=== PATIENT | female | born 1930 | race Caucasian/White ===

== ENCOUNTER 2019-04-19 11:25 | Inpatient (IN) | payer OTHER, BC ==
[~2019-04-19] VITALS: Ht 167.6 cm; Wt 46.9 kg
[2019-04-19 11:26] VITALS: BP 103/79
[2019-04-19] MEDS ORDERED: VYZULTA5 ML OPHTHALMIC (11:36)
[2019-04-19] MEDS ORDERED: OMEPRAZOLE20 M2 PO (11:36)
[2019-04-19] MEDS ORDERED: SEROQUEL 100 M100 M1 PO (11:37)
[2019-04-19 13:04] LABS: ABSOLUTE NEUTROPHILS 4.1 thou/uL (1.4-8.2); BASOPHILS 0.5 % (0.0-2.0); EOSINOPHILS 0.9 % (0.0-3.0); HEMOGLOBIN 13.3 gm/dL (12.0-15.0); LYMPHOCYTES 22.6 % (24.0-44.0); MCH 33.3 pg (26.0-34.0); MONOCYTES 7.9 % (1.0-8.0); PLATELET COUNT 177 thou/uL (150-400); POLYS 68.1 % (36.0-66.0); RBC 3.98 mil/uL (4.20-5.00); RDW 12.6 % (10.5-14.5); WBC 5.9 thou/uL (4.0-11.0)
[2019-04-19 13:13] LABS: URINE BILIRUBIN NEGATIVE (Negative); URINE BLOOD 3+ (Negative); URINE COLOR YELLOW; URINE GLUCOSE-RANDOM* NEGATIVE (Negative); URINE KETONES 1+ (Negative); URINE LEUKOCYTES-REFLEX NEGATIVE (Negative); URINE NITRITE-REFLEX NEGATIVE (Negative); URINE PROTEIN (DIPSTICK) 2+ (Negative)
[2019-04-19 13:15] LABS: URINE CLARITY SL HAZY
[2019-04-19 13:22] LABS: AMP/METHAMP Negative (Negative); BARBITURATES Negative (Negative); BENZODIAZEPINES POSITIVE (Negative); COCAINE Negative (Negative); METHADONE Negative (Negative); OPIATES Negative (Negative); PCP Negative (Negative)
[2019-04-19 13:26] LABS: SQUAMOUS 0-3 Few /LPF (0-3); URINE RBC >20 Many /HPF (0-2); URINE WBC-REFLEX 0-5 Rare /HPF (0-5)
[2019-04-19 13:27] LABS: BACTERIA-REFLEX 1-9 Few /HPF (None Seen); CASTS None Seen /LPF (None Seen); CRYSTALS None Seen /LPF (None Seen)
[2019-04-19 13:27] LABS: ANION GAP 11 mmol/L (7-16); BUN 18 mg/dL (7-18); CALCIUM 9.1 mg/dL (8.5-10.1); CHLORIDE 107 mmol/L (98-107); CO2 24 mmol/L (21-32); CREATININE 0.8 mg/dL (0.6-1.0); GLUCOSE 91 mg/dL (74-106); POTASSIUM 3.2 mmol/L (3.5-5.1); SODIUM 142 mmol/L (136-145)
[2019-04-19 13:33] LABS: SALICYLATE < 2.8 mg/dL (2.8-20.0); SGOT 24 U/L (15-37); SGPT 24 U/L (30-65); TOTAL BILIRUBIN 0.7 mg/dL (<0.1-1.0)
[2019-04-19 13:35] LABS: MAGNESIUM 1.7 mg/dL (1.8-2.4); TROPONIN-I <0.06 ng/mL (<0.06)
[2019-04-19 14:32] VITALS: BP 147/63
[2019-04-19 16:01] VITALS: BP 179/94
--- NOTE | 2019-04-19 17:22 | EKG ---
[address] [place] [address] ELECTROCARDIOGRAM REPORT Name: BASHIR KIRAN Room #: 518- ADM IN M.R.#: [id number] Admission: 04/19/19 Attend Phys: Eric Pierson DO Discharge: Date of : [birth year] Report #: [id number] THIS REPORT FOR: //name// [facility] ED Test Date: 2019-04-19 Test Time: 13:04:21 Pat Name: BASHIR IKRAN Department: Room: [facility] Gender: F Rn Diabetes Educator: LESLEY : 1930 Requested By: Curt Smith Order Number: [id number] MD: Jesus Wetzel Measurements Intervals [place] Rate: 97 P: 56 NM: 122 QRS: 48 QRSD: 89 T: 51 QT: 376 QTc: 478 Interpretive Statements Sinus tachycardia Ventricular premature complex No previous ECG available for comparison Electronically Signed On 04-19-2019 17:22:30 GRADUATE RN by Jesus Wetzel [email or web address] <ELECTRONICALLY SIGNED> By: Jesus Wetzel MD, [facility] 04/19/19 1722 1304 [id number] Jesus Wetzel MD, FACC /EPI
[2019-04-19 17:58] VITALS: BP 170/86
--- NOTE | 2019-04-19 19:12 | NUR ---
88 yo female admitted from ER with hx of being combative with her walker at snf and yelling. Confused. Keeps asking "Why am I here?" "How did I get here?" Orientated to self only. When asked about SI/HI she states that she doesn't know what I am talking about. Denies pain. Ambulates with assistance with walker to dining table without difficulty. Ate dinner independently with peers. Compliant with med. Breath sounds clear t/o, bilaterally equal, slightly diminished in lower lobes. O2 sats 99% Color pink with brisk capillary refill and palpable peripheral pulses. BP 170s/90s. Dr. Gillis here assessing pt, aware. Reg HR auscultated. Active bowel sounds over soft, flat abdomen. 3 cm circular mole to R thigh. R mastectomy scar. Bruising per R wrist consistent with information from snf.
[2019-04-19 19:56] VITALS: BP 148/76
--- NOTE | 2019-04-19 22:13 | NUR ---
Care assumed of patient at 1915: Patient answers to her name when called. Patient laying in bed at start of shift. Patient agitated and irritable during nursing assessment. Patient having difficulty understanding questions asked. Nurse asked patient if she would like her light turned off. Patient kept repeating "what?" Simple questions as such were difficult to be processed and answered appropriately for this nurse. Patient confused and forgetful. When asked what her name is, she looks at nurse with blank suspicious look. Patient did take HS medication without difficulty. Patient reported that she "just wants to sleep" and "for you to leave my room" when speaking to nurse. Patient denies pain or discomfort with a blunt "NO!". Patient tomas called and was notified of admission, visitation hours and security code. She is listed on [facility] paperwork in chart. Patient yelled out for help and stated she needed to use the bathroom. Nurse assisted her to the bathroom with standby assist. Continent of bladder. Patient has shown no physical aggression or combative behaviors this evening. Patient continues to rest quietly in bed.
--- NOTE | 2019-04-20 08:30 | H ---
[facility] [address] [place] [address] HISTORY AND PHYSICAL Name: BASHIR KIRAN Room #: 518B-B ADM IN M.R.#: [id number] Admission: 04/19/19 Attend Phys: Eric Pierson DO Discharge: Date of : [birth year] Report #: [id number] THIS REPORT FOR: //name// CC: Eric Lauren DATE OF SERVICE: 04/19/2019 INPATIENT PSYCHIATRIC EVALUATION ATTENDING PHYSICIAN: Eric Pierson D.O. PHOTOGRAPH ENLARGER: Malick Dawn MD REASON FOR EVALUATION: Combative, yelling, unable to redirect at long-term, patient is poor historian. HISTORY OF PRESENT ILLNESS: This is an 88-year-old beige, frail-appearing female. Particularly we noted the patient having falls as recent as 04/10/2019, altered mentation resistant to cares. The patient was screened at the Emergency Room to have somewhat better narrative than the last provider note dated 04/04/2019 by [facility]. She was noncooperative with review of systems and exam. Repetitive speech. MEDICAL HISTORY: Includes metabolic encephalopathy, bipolar 2 disorder, GERD, osteoarthritis, major depression, dementia with behavior, glaucoma, hyperlipidemia, osteoarthritis, acute cystitis without hematuria, severe PCM, paranoid personality disorder. EMERGENCY ROOM DOCUMENTATION: She has been prescribed Xanax by long-term. Apparently, the patient was throwing her walker around dangerously in the long-term, not eating breakfast. There is bruising on her arms. The patient made statements in the ER "everyone here looks so familiar, you are to me, waiting for me to , I am going to , so what's the difference." When asked about history, said "I am not talking to you, shut up, I do not want to hear it." She was spitting, hitting the staff, throwing walker at facility, verbally abusive per EMS. She takes latanoprost for glaucoma in her eye, omeprazole, Seroquel 100 mg with dinner. Both the ER and myself were unable to do review of systems. Weight 45.586 kilos, it is about 100 pounds. She had little scratches over her legs. No exudates. No ulcers. Extremities are warm and dry. Good skin turgor. IMAGING STUDIES: EKG showed a sinus rate 97, normal axis, no STEMI. No other EKGs for comparison. Chest x-ray was done, which showed mild chronic appearing interstitial lung disease. [address] [address] HISTORY AND PHYSICAL Name: BASHIR KIRAN Room #: 518B-B ADM IN M.R.#: [id number] Admission: 04/19/19 Attend Phys: Eric Pierson, Discharge: Date of : [birth year] Report #: [id number] LABORATORY DATA: Sodium 142, potassium 3.2, chloride 107, bicarbonate 24, anion gap 11, BUN 18, creatinine 0.8, estimated GFR 68, glucose 91, calcium 9.1, magnesium 1.7, total bilirubin 0.7, AST 24, ALT 24, alkaline phosphatase 146. Troponin less than 0.06. Total protein 6.0, albumin 3.0. TSH 0.841. White blood cell count 5.9, H and H 13.3 and 39.0, platelet count 177. UDS positive for benzodiazepines. Urinalysis showing 1+ protein, 1+ ketones, 3+ blood, nitrites negative, leukocyte esterase negative, few bacteria seen. The patient was given potassium replacement in the ER, medically cleared. When I interviewed the patient, both in the ER and attempted interview on floor, she first looked familiar, then got irritable, belligerent, was noncooperative with questioning. The nurse spoke to, who I believe her son or daughter, I have not had time to call today, but will tomorrow. PHYSICAL EXAMINATION: GENERAL: This is a [age]hkym[age]cb[age]-age female, appearing frail. Attention limited. Concentration limited. Speech loud, normal rate. Thought process, largely nonlinear, tangential. Thought content, paranoid, guarded and difficult to dissect further, did not appear self-harming or assaultive. She could be responding to external stimuli, but I am not able to explore it at this time. Memory noted to be impaired. Insight impaired. Judgment impaired. Fund of knowledge well below average. FORMULATION: An 88-year-old female sent from long-term, she apparently was in jail stay. FAMILY HISTORY: Noted for diabetes mellitus, breast cancer in sister, diabetes mellitus in father. DIAGNOSES: Major neurocognitive disorder, likely due to Alzheimer's disease with behavioral disturbances, now decompensated. Physical diagnoses include glaucoma, osteoarthritis, history of cystitis. PLAN: Evaluate, stabilize, obtain collateral. With regard to her current medications, she should be in the hospital on Protonix 40 mg p.o. daily for GERD, Seroquel 100 mg at bedtime and 25 mg b.i.d. added on, latanoprost 1 drop each eye at night, the usual including Zofran, Tylenol, magnesium hydroxide. ESTIMATED LENGTH OF STAY: 10-14 days. Take collateral from family. I suspect we will need to add more medication once I talk to decision makers. She is having no code, currently signed in by her DPOA. Time spent on interview, review of records, coordination of care of this patient is at least 45 minutes. [facility] [address] [place] [address] HISTORY AND PHYSICAL Name: BASHIR KIRAN Room #: 518B-B ADM IN M.R.#: [id number] Admission: 04/19/19 Attend Phys: Eric Pierson DO Discharge: Date of : [birth year] Report #: [id number] STRENGTHS: She has supportive family and insurance. WEAKNESSES: Quite advanced age, neurodegenerative disorder and comorbidities. <ELECTRONICALLY SIGNED> By: Eric Pierson DO 04/20/19 0830 [id number] Eric Pierson DO /nt
[2019-04-20 09:45] VITALS: BP 145/85
--- NOTE | 2019-04-20 10:31 | NUR ---
0700 rECIEVED REPORT AND ASSUMED CARE. PATIENT RELAXED IN BED. ABLE TO AMBULATE WITH WALKER SUPPOR. TOOK BREAKFAST AND MEDICATIONS. CONFUSED.ALERT AND ORIENTED X 1 GETS AGITATTED WHEN SHE REALIZES WE DONT ALLOW HER TO GO "UPSTAIRS AND SEE HER FRIEND" 1000 WENT TO HER ROOM TO RELAX. DIDN'T PARTICIPATE ON THERAPY TODAY. WILL CONTINUE WITH THE PLAN OF CARE.
--- NOTE | 2019-04-20 18:01 | NUR ---
PT. HAS REFUSED ALL FOOD/BEVERAGE TODAY. SHE BECOMES AGITATED WHEN STAFF TRIES TO ASSIST HER. SHE WILL NOT FEED HERSELF EITHER.
[2019-04-20 20:24] VITALS: BP 159/99
--- NOTE | 2019-04-20 21:40 | NUR ---
Care assumed of patient at 1915: Patient alert and oriented to person only. Patient confused and forgetful. Patient pacing about the unit requesting to go upstairs at start of shift. Patient irritable and restless. Patient was able to be assisted to her room and she decided to lay in bed. Nurse approached patient to complete nursing assessment. Patient speaking in word salad, not answering questions appropriately. Patient having suspicious look to her. Patient speaking in a sarcastic manner, difficulty making eye contact. Patient provided HS medication whole. Patient took the cup angrily from nurse and resistently took prescribed Seroquel. Patient then began yelling at the nurse when prescribed eye drops were instilled. Patient stating "I don't know what is wrong with you people here", "You guys are the weirdest people I have met". Those are the clearest phrases patient was able to put together. Patient did deny pain or discomfort. Patient would yell "NO" to most questions asked. Patient declined HS snack but did drink approximately 90cc H2O with medication. Patient resting quietly in bed at this time.
[2019-04-21 05:56] LABS: CALCIUM 8.6 mg/dL (8.5-10.1); CREATININE 0.9 mg/dL (0.6-1.0); POTASSIUM 3.6 mmol/L (3.5-5.1)
--- NOTE | 2019-04-21 07:22 | NUR ---
Patient up this AM to have vital signs monitored. Staff attempted to assist patient to day room for breakfast. Patient banging walker into ma, hitting it on the floor. Attempting to hit staff with walker. Cursing, yelling. Repeatedly asking "why are you doing this to me?" Attempted to re-orient patient that she is at the hospital. Not helpful. Patient agitated and irritable. Dr. Pierson notified. Order obtained for Olanzapine IM 1x now. Patient grabbing at staff, hitting. Confused and angry.
[2019-04-21 07:35] VITALS: BP 136/82
--- NOTE | 2019-04-21 12:22 | NUR ---
Pt responds best to the name "Yumiko Booker" ADEOLA contacted pt's DPOA and nephew Chato "Chad" Abhinav (JEFFRY) to discuss hx of pt's mental health. He acknowledged he is DPOA but said pts niece Sienna Ruano would have more information. ADEOLA contacted DF and obtained a hx from her. Pt is without any children; pt's niece and nephew are the closest relatives to her. She explained much is unknown to her and pt's nephew because her hospitalization 20 years ago was kept a secret. She also notes pt was a severe alcoholic before that hospitalization, but is not currently. She said pt's psych doctor Dr. Mullins with [facility] would know the most because pt has been treated by Dr. Mullins since right after that hospitalzation. Around the time of this hospitalization pts . DF notes that much of pt's neediness ad the beginning of her altered mental status began 5 years ago when her last living sibling ; pt is the youngest of 11 children. However, her paranoia, aggressive behaviors, hallucinations, and delusions really increased over the summer. She now believes that her food is poisoned, and that she sees something bad happen to her niece on the news. DF notes that it is very important to make pt feel like she is in control at all times, because some of her paranoia occurs after she believes someone is trying to take control from her. DF also notes the best way to calm pt down is to talk to her about being an [employer]; pt's ray is very important to her and she is very interested in all things Janae and [employer]. Pt does not have recent history of drug and alcohol use. She worked for many years and did so at [employer] and for [employer]; she has not worked in over 20 years. DF says when pt had her latest incident, she was at [facility] for skilled rehab. However, they were in the process of moving her to memory care. She said conversations she has had with staff with [facility] of suggest they want to take pt back once her behaviors are stable. ADEOLA scheduled a family meeting for Tuesday 04/24 @ 3pm; pt's nephew JEFFRY will attend via phone as he lives in [place], [place]. ADEOLA sent an email to Chad at [email or web address]. SW team will continue to follow pt during her stay.
--- NOTE | 2019-04-21 12:47 | NUR ---
Received IM injection this a.m. she did become calm and cooperative after until about 1130, when she became agitated and aggressive, slamming walker into the ma and door of nurses station, she started to yell out at staff in nonsensical words, she was actually redirected and helped to the dining room where she sat and ate a small amount of her lunch although she did finish her ensure, she remains confused, spoke with Dr. Pierson, received orders for IM injection as a prn due to her refusing meds and increased agitation, continue to monitor for behaviors and safety.
--- NOTE | 2019-04-21 19:50 | NUR ---
Sleeping in bed with SR up at approximately 1830. No s/o distress. Mouth moving as if she is praying or talking in her sleep.
[2019-04-21 20:02] VITALS: BP 180/94
[2019-04-21 21:46] VITALS: BP 180/94
--- NOTE | 2019-04-22 03:07 | NUR ---
PT IN BED AT CHANGE OF SHIFT. TOOK HS MED W/O PROBLEM. UP TO BR WITH WALKER. REFUSING ASSIST FROM STAFF. LOUD, BELLIGERENT, AND ARGUMENTATIVE. ATTEMPTING TO USE WALKER TO FEND OFF ASSIST. DID NOT QUITE MAKE IT TO BR, AND HAD BM NEAR STOOL. PT RETURNED TO BED AND BR CLEANED AND SANITIZED. PT UNTIMATELY WENT TO SLEEP AND CONTINUES TO REST QUIETLY TO THIS POINT.
[2019-04-22 07:34] VITALS: BP 123/63
[2019-04-22 09:50] VITALS: BP 123/63
--- NOTE | 2019-04-22 10:00 | NUR ---
0700 Report received from overnight, patient ate breakfast took medication without incidence. Patient quiet cooperative no depression, anxiety at present time. patient participated in groups.
[2019-04-22 19:38] VITALS: BP 121/69
--- NOTE | 2019-04-22 23:26 | NUR ---
Care assumed of patient at 1915: Patient alert and oriented to person. Patient seated in day room at start of shift. Patient confused and forgetful. Patient compliant with nursing assessment. Patient easily agitated. Asking the same questions over and over. Disorganized thoughts, flight of ideas. Patient labile to where she was smiling and speaking clear thoughts then she was agitated, gritting her teeth, speaking word salad, trying to hit staff. Patient denies pain or discomfort. Patient worried about being killed because someone else was murdered today. Patient required frequent re-direction and orientation that she is at the hospital and is safe. Patient did report that she hadn't ate all day and was hungry and wanted a sandwich. Patient provided a box lunch and ate approximately 50%. She then ate 100% HS snack. Patient took HS medication whole without difficulty. Patient denies SI/HI/AH/VH. Patient reported that she was ready to go to bed. Patient assisted to her room with staff x1. Patient became agitated a couple times during ambulating to her room, going to the bathroom and laying in bed. Patient slammed her walker on the ground and attempted to swing her arm and hit nurse. Patient was easily re-directed. Patient continent of bladder. Patient fixated on making sure all the doors and windows were locked so the murderer could not get to her in her sleep. After several minutes, patient was able to fall asleep and has been resting quietly.
[2019-04-23 07:48] VITALS: BP 130/63
[2019-04-23 09:22] VITALS: BP 130/63
--- NOTE | 2019-04-23 16:28 | NUR ---
Assumed care this morning 0700. Patient was able too take breakfast and medications. later in the morning she started getting more agitated and paroid about someone who wants to hurt others and take them away.Flights of thoughts that are incoherent. Scared of getting out of her room and trying to close the door every time she goes back there. The hospitalist came to see her and she became so agitated and started saying that "you are not taking care of the person taking others." Resting in her room most of the day. Walks to the activity room just for meals. Will continue to monitor.
--- NOTE | 2019-04-24 04:16 | NUR ---
1909-Report received from day shift nurse and care assumed. Quynh was in her room awake laying on her bed at shift change. She initially said "get out" several times when talking with her in her room, but then she didn't and talked with unrecognizable words in word salad form mostly, some understood was "did you hear" "about him" "dying". She had a tense, paranoid affect, and then soon her HS meds. were obtained and she said "no, no". This nurse acknowledged her delusions with understanding and concern.She refused a snack at that time. At about midnite she walked with walker out of her room and to the nurses station shouting "let me in there, this is my house, you are fired, he is fired" and was then non-redirectable banging her walker into the wall too, yelling "this is my house, you are fired". She escalated yelling mostly non-recognizable words also, delusional/paranoia in content. She was given at 0030 Olanzapine 7.5 mg. IM. It was effective, she talked in a quieter voice and wanted to talk to this nurse asking about Stephanie repeatedly and other non-recognizabe sentences in content of "when did she ", where is Stephanie. She said I'm hungry a few times and snack provided to her. She could not relocate her room when she wanted to go back to it. She finally did go back to sleep soundly.
[2019-04-24 09:38] VITALS: BP 131/68
[2019-04-24 09:56] VITALS: BP 131/68
--- NOTE | 2019-04-24 15:51 | NUR ---
AFTER REPORT NURSE ASSUMED CARE 0700. PATIENT CALM AND COOPERATIVE. AGREED TO SIT AT THE ACTIVITY ROOM FOR BREAKFAST AND HAD GGOD APPETITE. TOOK MEDICATIONS WHOLE. PT GOES BACK TO BED THEREAFTER BECAUSE THATS WHERE SHE FEELS SAFE. SHE KEEPS ASKING FOR HER SUITCASE THAT HAS HER CLOTHS. REMINDED HER CLOTHS ARE LOCKED SAFELY AND NO ONE WILL TOUCH THEM.WORD SALAD OVER AND OVER. REASSURING HER MAKES HER FEEL SAFE AROUND. WILL CONTINUE WITH THE PLAN OF CARE.
[2019-04-24 20:19] VITALS: BP 136/68
[2019-04-24 20:20] VITALS: BP 147/85
--- NOTE | 2019-04-25 01:14 | NUR ---
ASSESSMENT: PT REMAIN ALERT AND ORIENT TO SELF. PT IS VERY SLEEPY, YET EASY TO AROUSE. DENIES PAIN. TOOK HS MEDS BUT REFUSED LATANOPROST EYE GTTS. AFTER TAKING MEDS AND USING THE BR, PT WENT STRAIGHT BACK TO SLEEP WITHOUT FURTHER ADO. PT DENIED BEING HUNGRY IN SPITE OF NOT EATING DINNER. VSS, AFEBRILE, WILL CONTINUE TO MONITOR. BED ALARM SET. EVERY 12 MINS ROUNDS MADE ON PT. WILL CONTINUE TO MONITOR.
[2019-04-25 07:56] VITALS: BP 126/66
--- NOTE | 2019-04-25 13:26 | NUR ---
ADEOLA received a call from pt's nephew and CHRIS La. He had a couple questions from yesterday's family meeting; he asked if pt's diagnosis was BiPolar II. ADEOLA explained that was conversation in the ER room during her ER consultation, but that is not in her H&P. He then mentioned that a nurse told him she would fax him documentation with what the plan will be for pt's treatment. ADEOLA advised him that specific nurse is not on duty, but SW will follow-up on this information. He also stated he would like the psych doctor to have access to pt's doc records from Dr. Mullins. ADEOLA faxed a release of information for Chad to sign to [phone]. SW team will continue to follow pt during her stay
--- NOTE | 2019-04-25 13:36 | NUR ---
ADEOLA faxed updates to [facility] [place] to [phone]. ADEOLA team will continue to follow pt during her stay.
--- NOTE | 2019-04-25 15:42 | NUR ---
ASSUMED CARE OF PT AT APPROX 0700. PT IS ALERT. DENIES PAIN AND SOA. EVEN NON LABORED BREATHING. ASSESSMENT CHARTED. PT WAS IN ROOM MOST OF DAY EVEN AFTER LOTS OF ENCOURAGEMENT BY THIS RN AND OTHER STAFF. NAD NOTED WILL CONT. TO MONITOR.
[2019-04-25 19:41] VITALS: BP 133/73
--- NOTE | 2019-04-26 01:00 | NUR ---
ASSUMED CARE @ 19:15 ON 04/25/19, IN HER ROOM AMBULATING FROM ROOM TO HALLWAY AND BACK. WHEN EVENING STAFF INTRODUCED SELF, PATIENT WAS CONFUSED, REFUSED TO SAY NAME, COULD NOT EXPRESS PLACE OR TIME. BECAME COMBATITIVE AND SLAPPED STAFF TRYING TO GIVE CARE. PATIENT REFUSED ASSESSMENT. PATIENT DID TAKE HER PO MEDS CRUSHED IN APPLESAUCE GIVEN PO OLANZAPINE 5 MG PRN @ 2100. REFUSED ENSURE AND WATER. EYE DROPS PROVIDED @ 2200. LAID DOWN AND SLEPT AT AN APPROPRIATE TIME, AWAKENING A FEW TIMES IN THE NIGHT FOR TOILETING. RESISTED CARE AT THOSE TIMES. WILL CONTINUE TO MONITOR Q 12 MINUTES FOR PATIENT SAFETY. BED IN LOW POSITION, BED ALARM SET.
[2019-04-26 09:13] VITALS: BP 129/67
[2019-04-26 14:02] VITALS: BP 129/67
--- NOTE | 2019-04-26 14:09 | NUR ---
THE PATIENT IS CONFUSED BUT ALERT. SHE WAS STANDING IN THE DOOR OF HER ROOM HOLLERING OUT. SHE EXPRESSED THAT SHE WAS NEXT TO BE KILLED. THE PATIENT WAS REDIRECTED BUT POINTED TO THE [employer] AND THE [facility] STUDENT SAYING THAT SHE DOES NOT TRUST THEM. THE PATIENT WAS REDIRECTED AND THEN AMBULATED WITH HER WALKER TO HER ROOM. SHE HAS BEEN NONCOMPLIANT WITH MEDICATIONS. SHE SPIT OUT HER SEROQ. THIS MORNING. THE NIGHT NURSE ALSO REPORTED THAT SHE SPIT OUT HER MEDICATIONS LAST NIGHT. THE PATIENT CONTINUES TO ASK FOR HER EYE GLASSES BUT SHE HAS NONE. THERE ARE NO GLASSES LISTED ON HER INVENTORY SHEET. SHE CONTINUES TO HOLLER OUT IN THE HALLWAY BY HER ROOM AND SLAMMING HER DOOR TELLING STAFF TO GET OUT AND GO AWAY. THE PATIENT IS CHECKED ON EVERY 12 MIN. AND PRN. SHE IS VERY AGITATED AND RESTLESS. SHE HAS BRP AND MAY NEED STAND BY ASSIST WHILE DURING ADL'S. CONTINUE TO MONITOR.
[2019-04-26 19:30] VITALS: BP 136/61
[2019-04-26 23:23] VITALS: BP 136/61
--- NOTE | 2019-04-27 03:14 | NUR ---
PATIENT HAS BEEN SLEEPING MOST OF NIGHT. SHE BECAME VERY AGITATED AT BEGINNING OF THE SHIFT BECAUSE SHE WAS NOT ALLOWED TO CLOSE HER DOOR ALL THE WAY. FINALLY, WE DID AND JUST OPENED THE INSERT DOOR. PATIENT WAS IRRITABLE WITH MUSIC SOUND LIGHT TECHNICIAN AND THIS NURSE WHEN WE HAD TO CHECK VITALS AND GIVE HS MEDS. SHE TOOK HER MEDS WITHOUT INCIDENT AND THEN ORDERED US TO GET OUT OF HER ROOM. SHE DOES HAVE DELUSION THAT THIS PLACE IS LIKE A WOMEN'S RETREAT AND SHE IS NOT VERY HAPPY THIS YEAR WITH THIS ONE. SHE DENIES PAIN. OLANZAPINE 5MG PRN GIVEN WITH HS MEDS. BED ALARM ON. WALKER BESIDE BED. ROUTINE ROUNDS BEING DONE. CONTINUE TO MONITOR.
[2019-04-27 08:00] VITALS: BP 119/63
--- NOTE | 2019-04-27 14:52 | NUR ---
DYSPHORIC MOOD THROUGHOUT SHIFT. APPEARS ANXIOUS AND YELLING OUT FOR HELP WHEN OUT OF ROOM-"WHERE AM I SUPPOSED TO BE" "MOVE MY CHAIR" WILL SIT IN DAYROOM FOR SHORT PERIODS OF TIME BEFORE RETURNING TO ROOM. EASILY FRUSTRATED AND IRRITATED WITH NURSING STAFF IF NEED CONSTANTLY AT HER SIDE "STATING I HIRED YOU YOU SHOULD BE TAKING CARE OF ME NOT TALKING TO HER(FEMALE PEER)DENIES PAIN/DISCOMFORT. USING ROLLER WALKER FOR AMBUALTION AND GAIT IS SLOW-STEADY WITH ASSISTIVE DEVICES. ORIENTED TO NAME ONLY-IDENTIFIES PLACE "MY HOUSE"
[2019-04-27 19:30] VITALS: BP 114/60
--- NOTE | 2019-04-28 00:38 | NUR ---
ASSUMED CARE OF PATIENT AT APPROXIMATELY 1915 04/27/19. PATIENT IN BED WHEN THIS NURSE CONDUCTED ONE TO ONE WITH PATIENT. PT APPEARS WITH EYES CLOSED BUT OPENED THEM SPONTANEOUSLY TO THIS NURSES VOICE. SHE APPEARS WITH FLAT SAD AFFECT, DISHEVELED APPEARANCE. SHE WAS COOPERATIVE TAKING HER MEDICATION ORDERED. SHE WAS ABLE TO DENY SI HI AND DOES NOT APPEAR TO BE RESPONDING TO INTERNAL STIMULI. SHE DOES NOT APPEAR TO BE IN MEDICAL DISTRESS, NOR DID PT MAKE ANY STATEMENTS. NURSING WILL MAINTAIN ALL PRECAUTIONS TO ENSURE SAFETY AT ALL TIMES.
[2019-04-28 07:00] VITALS: BP 117/64
[2019-04-28 10:50] VITALS: BP 114/60
--- NOTE | 2019-04-28 10:59 | NUR ---
THE PATIENT CONTINUES TO BE CONFUSED BUT THERE IS A BIT OF IMPROVEMENT. THE PATIENT IS NOT HOLLERING OUT IN THE HALLWAY BY HER RROM. SHE USUALLY SAYS THAT SHE IS NEXT TO BE KILLED. SO FAR SHE HASN'T SAID IT TODAY. SHE ATTEMPTED TO SPIT OUT HER MEDICATIONS TODAY BUT WAS TOLD WHAT WILL HAPPEN IF SHE DID PER DOCTOR'S ORDERS AND THE PATIENT TOOK HER MEDICATIONS. SHE IS NOT EXPRESSING MANY HALLUCINATIONS AND DELUSIONS BEFORE. BUT SHE IS AWFULLY CONFUSED. HER DPOA CALLED AND ASKED FOR A UPDATE ON HER CARE. HE WAS GIVEN THE INFORMATION HE ASKED FOR: WEIGHT ON ADMISSION AND HER WEIGHT NOW. HE ALSO ASKED ABOUT HER MEDICATIONS. SHE AMBULATES WITH A WALKER AND STAND BY BATH ROOM PRIVILEGES. SHE HAS BEEN RESTLESS AND IMPULSIVE A BIT THIS MORNING. SHE IS ALERT. CONTINUE TO MONITOR THE PATIENT.
[2019-04-28 22:00] VITALS: BP 114/60
--- NOTE | 2019-04-29 00:55 | NUR ---
Patient has yet to have gone to sleep this shift. Patient up and pacing the hallways. Running walker into nurses station ma. Patient reported that she wanted a snack but told she needed to go to the dayroom to eat. Patient was not able to comprehend this. Patient provided snack options at least 5 times. Patient forgets options immediately. Patient stating that staff are murdering people and she is next. Yelling, telling staff they will go to hell. Keeps referring to a production control coordinating clerk but unable to comprehend what she is referring too. Hyperverbal, repetitive. Patient asking where her niece is because she was just in her room. Patient being rude and disrespectful. Hostile toward staff. Patient provided snack, offered puzzle and newspaper. Patient then states "are you just an idiot?". Multiple staff have attempted to provide one on one care with no success. Patient slamming her door, disrupting mileau. notified of insomnia and current behaviors. Order obtained for Geodon 20mg IM 1x now. Security notified and assisted with injection. Patient laying in bed at this time.
--- NOTE | 2019-04-29 03:20 | NUR ---
PT IN ROOM AT START OF SHIFT. LOUD AND ARGUMENTATIVE. REFUSED HS MEDS. ZYPREXA 10MG IM TO RT BUTTOCK. PT SETTLED FOR A TIME. OUT OF ROOM WITH WALKER AT 0100, CONFUSED BUT WAS REDIRECTED TO ROOM WHERE SHE HAS BEEN QUIET SINCE. SLEEPING AT THIS TIME W/O FURTHER PROBLEM.
[2019-04-29 12:24] VITALS: BP 114/60
--- NOTE | 2019-04-29 12:32 | NUR ---
THE PATIENT HAS BEEN AMBULATING AROUND THE [place] WITH HER WALKER. SHE WAS COMPLIANT WITH HER MEDICATIONS THIS MORNING. THE PATIENT HAS BEEN COOPERATIVE BUT CONFUSED AND IS SHOWING SIGNS OF IMPROVEMENT. SO FAR TODAY SHE HAS NOT MENTIONED SOMEONE IS AFTER HER TO KILL HER OR PARANOIA SHE FEELS TOWARDS STAFF MEMBERS. SHE HAS BRP WITH A STAND BY. SHE DENIES SI AND HI, SHE IS NOT IN PAIN, SHE SAYS. SHE WAS IN GROUP THIS MORNING. CONTINUE TO MONITOR THE PATIENT.
--- NOTE | 2019-04-29 13:33 | NUR ---
1300 PT HAPPENED TO CHOKE WILL EATING HER LUNCH. NURSE WAS WITHING THE SURROUNDING CHECKING/1:1 WILL MY PATIENT WAS GETTING IV FLUIDS. NURSE CALLED FOR HELP AND OTHER UNIT NURSES AND NURSE AIDS, AND RAPID RESPONSE NURSE CAME. PLASTIC SURGERY MANAGER CAME TOO. PATIENT COLOR WAS TURNING TO BLUE/PURPLEISH WE HELPED THE PATIENT WITH HEIMLICH MANEUVER. PATIENT WAS ABLE TO SPIT FOOD OUT.COLOR IMPROVED IMMEDIATELY. LATER SHE VOMITED ALL THE FOOD OUT. VITALS STABLE. SHE IS TALKING AND APPRECIATING FOR THE HELP. PATIENT GONE TO THE ROOM WITH NURSE AID FOR CLEAN UP. WILL CONTINUE TO MONITOR.
[2019-04-29 19:56] VITALS: BP 106/58
[2019-04-30 01:43] VITALS: BP 106/58
[2019-04-30 09:08] VITALS: BP 123/89
--- NOTE | 2019-04-30 13:07 | NUR ---
HYPERVERBAL AND INTRUSIVE THIS AM PROPELLIN WHEELCHAIR TO PEERS AND TOUCHING THEM AND YELLING AT THEM "RACHAEL YOU TALK TO ME"RESISITIVE WITH TAKING MEDS -MEDS ARE CRUSHED AND MIXED WITH PUDDING AND DID TAKE 1-2 BITES BEFORE CLOSING MOUTH AND REFUSING TO OPEN UP FOR MORE- CONVERSATION [id number] DIRECTED-IRRITABLE MOOD-VERBAL AGITATION-DID STRIKE OUT AT STAFF WITH BRIEF CJANGE THIS PM.
--- NOTE | 2019-04-30 14:52 | NUR ---
ADEOLA received a report that pt had a difficult weekend and was showing signs of manic behavior. As a result, the psych doctor wants to push back pt's discharge to earliest of 05/02. ADEOLA contacted [facility] and spoke with Mary who agreed with pt not being discharged until 05/02. ADEOLA read for her the most recent nursing note. She asked that updates be sent to the facility. ADEOLA contacted Toma (pt's niece and DPOA) and asked if the facility was aware of pt's current state. ADEOLA explained they are and are still interested in following her. Toma thanked ADEOLA for the update. SW team will continue to follow pt during her stay.
--- NOTE | 2019-04-30 14:58 | NUR ---
ADEOLA faxed updates for pt to [phone]. SW team will continue to follow pt during her stay.
[2019-04-30 20:20] VITALS: BP 125/63
--- NOTE | 2019-05-01 03:05 | NUR ---
ASSUMED CARE AT 19:15 ON 04/30/19. REFUSED ASSESSMENT AND NOT ABLE TO ANSWER QUESTIONS OR PARTICIPATE IN DISCUSSION REGARDING MENTAL WELL BEING. TOOK HS MEDS CRUSHED IN ICE CREAM. VERBALLY ABUSIVE TO STAFF, SAYING INSULTS AND ACUSING STAFF OF WANTING TO KILL HER. ALSO SAYING THAT SHE WILL BE KILLING EVERY BODY WHO IS AROUND HERE. HOMACIDAL IDEATION EXPRESSED. RETURNED TO SLEEP. RESPIRATIONS EVEN AND UNLABORED, BED IN LOW POSITION, BED ALARM SET, WILL CONTINUE TO MONITOR Q 12 MINUTES FOR PATIENT SAFETY.
[2019-05-01 03:12] VITALS: BP 125/63
[2019-05-01 08:48] VITALS: BP 138/73
--- NOTE | 2019-05-01 15:49 | NUR ---
ADEOLA received a call from Ashwini with [facility] asking for the d/c plan for pt. After ADEOLA spoke with the psych doctor, she explained that pt will not be ready for d/c until after the holiday due to doctor wanting to observe the shift in her behaviors. ADEOLA explained she faxed updates and spoke with Mary about what is occuring with pt. ADEOLA provided an update to pt's niece Stephanie. SW team will continue to follow pt during her stay.
[2019-05-01 16:01] VITALS: BP 138/73
--- NOTE | 2019-05-01 16:12 | NUR ---
PATIENT WAS UP IN W/C, AND OUT IN THE DAYROOM WHEN CARE ASSUMED. MORNING MEDICATION CRUSHED IN PUDDING, PATIENT REFUSED MORNING MEDICATION, MEDS CRUSHED IN PUDDING, SHE SPIT THEM OUT. NEW BACK-UP ORDER FOR ZYPREXA IM 10MG GIVEN WITH POSITIVE EFFECT. NO AGITATION OR AGGRESSIVE BEAHVIOR NOTED AT THIS TIME. PATIENT IS EATING MEALS, AND DRINKING FLUID FAIRLY WELL. PATIENT IS VERY CONFUSED, DENIES SUICIDAL/OMICIDAL IDEATION, UNABLE TO RESPOND APPROPRIATELY TO FURTHER ASSESSMENT QUESTIONS DUE TO CONFUSION. AFFECT IS FLAT, BLUNTED. MOOD IS SAD, DEPRESSED. NO SIGN OF ACUTE DISTRESS NOTED, WILL MONITOR FOR SAFETY.
[2019-05-01 19:45] VITALS: BP 114/69
--- NOTE | 2019-05-02 05:32 | NUR ---
1909-Report received from day shift medardo and care frances. She was sleeping in her bed at shift start soundly. She did not receive her meds. and then awakened at about 0400 and went to the day room and sat around others quietly and with no c.o. voiced.
[2019-05-02 07:30] VITALS: BP 110/59
[2019-05-02 09:29] VITALS: BP 157/64
--- NOTE | 2019-05-02 09:41 | NUR ---
0700 Report received from overnight shift. patient was up and in the day room this morning. Patient ate 20% of breakfast took medication crushed with applesauce. Patient tends to spit medication out on the floor, if patient does not take medication, she has zyprexa IM for backup. Patient confused and somewhat participates in group. No aggression calm cooperative but confused.
--- NOTE | 2019-05-02 14:44 | NUR ---
ADEOLA contacted Ashwini with [facility] and updated her that the psych doctor has cleared pt to return as soon as Tuesday. Ashwini said they need to do an examination with pt in person, and will not be able to do so until Tuesday morning. ADEOLA team will continue to follow pt during her stay.
--- NOTE | 2019-05-03 01:24 | NUR ---
1909-Report received from day shift nurse and care assumed. Quynh was in her bed resting at shift start, talking to herself, she was assessed, had no complaints of pain and talked with somewhat sensical sentences. Then later when the aide went in her room to take her vital signs she shouted to them "No, you're black", and "get out". She began getting more restless and irritable and hypertalkative. She walked out to the hallway with her walker and walked to the nurses station asking "where do I go now", she was educated the day room or her room and she shouted "I just was there, where did you say", confused and frustrated with the answer given, and began stomping her walker on the floor. She did then go back to her room. She was taken her HS medicines due and they were crushed and in applesauce, she said "No, I'm leaving Tuesday, I hate you" and then took them but spit them out. She was talked with about the DrGrzegorz order to take them tonight (Seroquel pill) or the DrGrzegorz ordered an injection then if refuses the pill. She was given soon the injection. At about [id number] she awakened and needed to go to the bathroom she said. She had been incontinent of urine but also was continent of urine. She asked alert questions and had appropriate comments with instructions also about staff's assistance. She asked what time it was and was recommended she return to sleep and she said "thank you" and did so.
--- NOTE | 2019-05-03 06:09 | NUR ---
PATIENT BECAME BELIGERENT WITH STAFF, THREATENING TO KILL STAFF, ATTEMPTING TO HIT STAFF WHILE CHANGING LINENS IN ROOM. WILL CONTINUE TO MONITOR.
[2019-05-03 10:06] VITALS: BP 130/67
--- NOTE | 2019-05-03 13:44 | NUR ---
Awake and alert without s/o distress. Rambling, confused speech. Orientated to self only. No speech/behavior suggestive of SI/HI. Denies pain. Ambulates with walker with steady gait, sometimes needs help getting to feet. Eating independently but in very small amounts. Becomes irritated when encouraged to eat additionally. Compliant with meds this am. No stool in several days, took milk of magnesium without diff. Breath sounds clear t/o, bilaterally equal. Color pink with brisk capillary refill and palpable peripheral pulses. Reg HR auscultated. Active bowel sounds over soft, flat abdomen. Voiding per toilet. 1345 Sleeping in bed without s/o distress after eating lunch.
--- NOTE | 2019-05-03 23:19 | NUR ---
Care assumed of patient at 1915: Patient sitting in room at start of shift. Patient easily agitated and irritable this evening. Patient yelled at PARAMEDIC to get out of her room when she entered to assess vital signs. Nurse approached patient to complete nursing assessment when patient started to yell at nurse to get out! Patient originally stated that she did not feel well and then allowed nurse to assess her to see why she did not feel well. Patient alert and oriented to person only. Patient confused and forgetful. Patient calling staff "dumb" multiple times. Patient having difficulty understanding and answering simple yes/no questions. Patient reported she was hungry and was provided 2 different snacks in which she ate 100% of both. Patient did take HS medication crushed without difficulty. Denies pain or discomfort. Ambulates about unit with FWW. Denies SI/HI/AH/VH. No s/s of delusional or paranoia behaviors. Patient primarily confused. Patient able to retire to bed at a reasonable hour and has been resting quietly since.
[2019-05-04 08:06] VITALS: BP 115/55
--- NOTE | 2019-05-04 13:06 | NUR ---
BECAME VERY AGITATED AND PSYCHOTIC WHEN NEPHEW DONNELL MACEDO TRANSFERED INTO ROOM-HEARD HIS VOICE AND VERIFIED WHO IT WAS BEFORE STATING ON PHOME TO HIM "DONNELL I TOLD YOU I NEVER WANTED TO TALK TO YOU AGAIN" AND IMMEDIATLY HUNG UP PHONE. THIS BEGAN AN ESCALATION OF BEHAVIORS WITH NOTED INCREASED RESTLESSNESS.PACING UP AND DOWN OUT OF BED-YELLING FROM ROOM WINDOW AND WHEN STAFF GETS INTO ROOM POINTING OUTSIDE STATING "SEE THAT IS HIS CAR HE HAS COME TO BRING ME SOMEPLACE ELSE"I DON'T TRUST HIM-I NEVER HAVE I DON'T KNOW WHY HE IS COMING TO GET ME TODAY"
--- NOTE | 2019-05-04 22:21 | NUR ---
Care assumed of patient at 1915: Patient resting in bed at start of shift. Nurse entered room to assess patient. Patient yelling and screaming. "I'm dying, get out of here, we are all dying, just let me in peace". "Don't you touch me, they will kill you like they are killing me". Patient denies pain or discomfort. Will not specify what is killing her. Patient confused and forgetful. Non-compliant with nursing assessment. Primarily continued to scream and yell. Nurse attempted to sit with patient, maintain eye contact, hold her hand and console her. None of which was effective. Nurse attempted to administer medication crushed in yogurt. Patient originally allowed nurse to put the spoon in her mouth. She held the yogurt in her mouth for a few seconds then spit it all out on nurse and on herself. Nurse attempted to provide wet wash cloth and clean her face and clothing but patient grabbed the washcloth and threw it across the room. Nurse notified security and IM injection of Olanzapine was administered due to refusal of PO medication. Patient has been fairly quiet and resting as long as her light is off and people remain out of her room. Nightlight is on and bed alarm is active.
[2019-05-05 02:00] VITALS: BP 139/58
[2019-05-05 08:49] VITALS: BP 112/66
--- NOTE | 2019-05-05 10:07 | EKG ---
[place] [address] [facility] [place] [address] ELECTROCARDIOGRAM REPORT Name: BASHIR KIRAN Room #: 518B- ADM IN M.R.#: [id number] Admission: 04/19/19 Attend Phys: Eric Pierson DO Discharge: Date of : [birth year] Report #: [id number] THIS REPORT FOR: //name// [facility] Test Date: 2019-05-05 Test Time: 02:28:58 Pat Name: BASHIR KIRAN Department: Room: [facility] Gender: F Acute Dialysis Nurse: piero : 1930 Requested By: Elodia Ann Order Number: [id number] MD: Jesus Wtezel Measurements Intervals Nazlini Rate: 83 P: 67 VA: 117 QRS: 53 QRSD: 92 T: 63 QT: 375 QTc: 441 Interpretive Statements Sinus rhythm Borderline short VA interval Compared to ECG 04/19/2019 13:04:21 Sinus tachycardia no longer present Ventricular premature complex(es) no longer present Electronically Signed On 05-05-2019 10:07:01 APARTMENT MAINTENANCE SUPERVISOR by Jesus Wetzel [email or web address] <ELECTRONICALLY SIGNED> By: Jesus Wetzel MD, [facility] 05/05/19 1007 7 Jesus Wetzel MD, [facility] /EPI
--- NOTE | 2019-05-05 17:28 | NUR ---
Alert with rambling speech. Orientated to self only. No verbalizations or actions suggestive of SI/HI. Behavior variable, sometimes speech clear and she appears happy and calm. Other times she has garbled speech and is very irritated, combative. Compliant with meds today, crushed and placed in applesauce/yogurt. Independent with PO intake, when attempting to assist she spits out food. Breath sounds clear t/o, bilaterally equal, slightly diminished in lower lobes. No s/o resp distress. Color pink with brisk capillary refill and palpable peripheral pulses. Regular HR auscultated. Voided large amounts clear yellow urine X2 today. Active bowel sounds over soft, flat abdomen. Ambulates with slow, steady gait with walker. Spent most of day sleeping in room with the exception of meals.
[2019-05-05 20:01] VITALS: BP 168/74
--- NOTE | 2019-05-06 01:19 | NUR ---
ASSUMED CARE ON 05/05/19 @ APROXIMATELY 19:15, IN ROOM, IN BED. RESPIRATIONS EVEN AND UNLABORED, EYES CLOSED. HEAD OF BED ELEVATED APROXIMATELY 30 DEGREES. BED IN LOW POSITION, BED ALARM SET. AWAKENED TO VOICE WHEN AWAKENED BY NURSE FOR HS ASSESSMENT AND MEDICATIONS. TOOK MEDS CRUSHED IN PUDDING, WITH SOME COMPLAINT, BUT COOPERATED WITH MEDICATION AND NECTAR THICK BEVERAGE. ORIENTED TO SELF ONLY. WILL CONTINUE TO MONITOR Q 12 MINUTES FOR PATIENT SAFETY.
[2019-05-06 01:27] VITALS: BP 168/74
--- NOTE | 2019-05-06 05:58 | NUR ---
SLEPT TEN HOURS OVERNIGHT.
[2019-05-06 09:13] VITALS: BP 121/56
--- NOTE | 2019-05-06 16:31 | NUR ---
Has been up most of the day, she is calm but irritable, no combative behaviors noted, she is compliant with meals, but eats very little today, she refused morning meds, but remained calm, she did not participate in aany group activities, and has napped a intervals. Denies SI/HI and AVH.
[2019-05-06 22:20] VITALS: BP 121/56
--- NOTE | 2019-05-07 03:34 | NUR ---
PT HAS SPENT MOST OF THE NIGHT IN HER ROOM. HAS COME OUT ONLY ONE TIME DURING SHIFT. CONFUSED AND TEARFUL. CLAIMS TO BE FRIGHTENED. RESPONDED WELL TO REASSURANCE THAT SHE WAS SAFE. ESCORTED TO ROOM AND HAS SLEPT WELL THROUGH THE NIGHT TO THIS POINT.
[2019-05-07 09:21] VITALS: BP 126/54
--- NOTE | 2019-05-07 09:33 | NUR ---
ASSUMED CARE AT 0700 THIS MORNING. PT. IN BED. EDITOR NEWSPAPER'S GOT PT. UP. SHE AMBULATED WITH WALKER TO THE DINING ROOM. SHE C/O OF BEING COLD AND WANTING HER JACKET. NO JACKET FOUND IN HER ROOM OR IN HER LOCKER. SHE RECEIVED A BLANKET FROM THE STAFF TO HELP HER WARM UP. SHE C/O THAT BREAKFAST DOES NOT TASTE GOOD TO HER. SHE DID NOT EAT MUCH OF BREAKFAST. SHE ASKED WHY IT ALWAYS HAPPENS TO HER THAT THE FOOD DOES NOT TASTE GOOD TO HER. SHE TOOK HER MEDICATIONS CRUSHED AND IN APPLESAUCE WITHOUT PROBLEMS. SAT ON THE UNIT DURING MORNING MEETING BUT DOES NOT PARTICIPATE MUCH. DENIES SI/HI OR AVH AT THIS TIME. SHE IS COOPERATIVE WITH STAFF. NO STRIKING OUT NOTED THIS MORNING.
[2019-05-07 10:21] VITALS: BP 126/54
--- NOTE | 2019-05-07 11:34 | NUR ---
Nutrition update: Dr. Pierson stopped RD while on unit visiting another pt. Staff reports pt is loving Ensure Enlive supplements and drinking well, but stopped receiving them? Per diet review, shared pt has new restrictions for Pelion Thick liquids and supplement changed to pudding or magic cup as Ensure Enlive becomes thin if not chilled or if not thickened appropriately. verbalized understanding. Will proceed with trial of Magic cups BID at lunch, dinner and trial Beneprotein packets TID on trays to be mixed into soft food item. Follow up as scheduled per nutrition reassessment orders.
--- NOTE | 2019-05-07 12:32 | NUR ---
ADEOLA received a call from Ashwini stating that [facility]. Ashwini said 11am is an acceptable time, and they do not arrange transportation for the assisted living side. ADEOLA provided an update to Toma who asked SW to also sent her a list of medications for pt. ADEOLA asked her if she would like to transport pt or would like to use medical transport, and Toma chose medical transportation. ADEOLA contacted [facility] and arraged for transportation to occur on 05/08 @11am. ADEOLA team will continue to follow pt during her stay. [facility] [address] [place] [address]
--- NOTE | 2019-05-08 04:56 | NUR ---
ASSUMED CARE OF PATIENT AT 1915. SHE WAS IN BED AT THAT TIME, AND REMAINS IN BED NOW. IRRITABLE ON APPROACH. MINIMALLY COOPERATIVE WITH ASSESSMENT PROCESS. TOOK HS MEDS WITH MUCH PROMPTING AND ENCOURAGEMENT. APPEARS TO HAVE SLEPT THROUGH THE NIGHT. NO APPARENT DISTRESS. NO C/O. NO BEHAVIOR ISSUES THIS SHIFT.
[2019-05-08 07:52] VITALS: BP 124/59
[2019-05-08] MEDS ORDERED: DEPAKOTE SPRIN125 MG PO (08:48)
[2019-05-08] MEDS ORDERED: ZYPREXA 5 MG TAB5 M1 PO (08:48)
[2019-05-08] MEDS ORDERED: SEROQUEL 100 M100 M1 PO ×2 (08:50)
[2019-05-08] MEDS ORDERED: PROTONIX 20 MG20 MG PO (08:51)
--- NOTE | 2019-05-08 09:56 | NUR ---
Appears to be sleeping. Awakens easily. Rambling speech with occassional lucid, appropriate statements. Orientated to self only. No speech or actions suggestive of SI/HI. Breath sounds clear t/o, bilaterally equal. Color pink with brisk capillary refill and palpable peripheral pulses +2/+4 radially and +1/+4 in dorsalis pedis. Regular HR auscultated. Active bowel sounds over soft slightly rounded abdomen. Cried out when R upper quadrant palpated. No stool documented since 04/30. Small spot of what appears to be stool on toilet. Dr. Pierson notified. 2 tablets Senna given per order. Voided large amount yellow urine per toilet. Compliant with meds, took crushed with yogurt after taking whole meds out of mouth. Ambulates slowly with steady gait with walker. Participating in AM cares, brushed teeth with encouragement. Plan on discharge back to assisted this AM.
--- NOTE | 2019-05-09 09:02 | D ---
[facility] [place] [place] [address] DISCHARGE SUMMARY Name: BASHIR KIRAN Room #: 518B-B DIS IN M.R.#: [id number] Admission: 04/19/19 Attend Phys: Eric Pierson DO Discharge: 05/08/19 Date of : [birth year] Report #: [id number] THIS REPORT FOR: //name// CC: Eric Lauren DATE OF SERVICE: 05/08/2019 ATTENDING PHYSICIAN: Eric Pierson DO. ROCK CLIMBING TEAM MEMBER AT THE TIME OF DISCHARGE: Darius Soto MD. DISCHARGE DIAGNOSES: Major neurocognitive disorder, likely due to Alzheimer's disease with behavioral disturbance, variable improvement. Medical comorbidities for this patient include severe protein-calorie malnutrition. BMI of 17.8, dysphagia. Diet currently stable with nectar-thick liquids. The patient is getting Ensure Enlive 3 times a day with Beneprotein powder, glaucoma. DISCHARGE PLAN: Discharging to memory care [facility] psychiatric and medical care to be provided per that facility. DISCHARGE MEDICATIONS: As follows, Depakote sodium 500 mg p.o. b.i.d. in sprinkle form. The patient had a level of 56 today, which is good, olanzapine 5 mg p.o. q. 6 p.r.n. for agitation, Seroquel 200 mg p.o. at bedtime for impulse control, Seroquel 150 mg p.o. at 0900 and 1500 for impulse control, Protonix 40 mg p.o. daily at 0700 for GERD. Latanoprostene bunod one drop ophthalmic affected eye at bedtime. LABORATORY DATA: Pertinent laboratories this admission, hematology grossly normal. On 04/21/2019 showed chloride 108, BUN 19, glucose 111, otherwise BMP was within normal limits. Calcium is 8.6, magnesium was previously 1.7 replaced. Troponin less than 0.06. On admission, TSH 0.841. Urinalysis done on 04/19/2019 did not trigger urine culture. Depakote level originally on 250 b.i.d. Depakote Sprinkles 39, new level was 56. Urine drug screen was negative except for benzodiazepines positive. REASON FOR ADMISSION: Back in mid April, an 88-year-old female at nursing facility acting erratic, noncompliant, throwing walker, spitting, hitting and verbally abusive. HOSPITAL COURSE: The patient was admitted to Geriatric Psychiatry Unit. It took a while to get serial good behavior out of patient. She does have periods of irritability which could be seen today as she was not pleased to bid me farewell as I traditionally do of my patients. Her dementia is very advanced. Given her age, the family was counseled, there is a poor probability of life [facility] [address] [place] [address] DISCHARGE SUMMARY Name: BASHIR KIRAN Room #: 518B-B DIS IN M.R.#: [id number] Admission: 04/19/19 Attend Phys: Eric Pierson DO Discharge: 05/08/19 Date of : [birth year] Report #: [id number]. Given the fact she is eating some, remains fairly verbal, likely not meeting hospice criteria at this time, but with a few changes, she could be on hospice at any time. EKG done back on showed AL interval 122, QT 376, QTC 478. Imaging done this admission, she had choking episode, was negative for pneumonia. Over time, the patient became less combative. Her diet remains suboptimal, but she is eating. VITAL SIGNS: At discharge are as follows: Temperature 36.6, pulse 78, respirations 16, BP 124/50, O2 sat 95%. MUSCULOSKELETAL: In wheelchair, but can use a walker. MENTAL STATUS EXAMINATION: This is a well-developed, frail-appearing female appearing at least stated age. Attention limited. Concentration limited. Speech is normal rate. Thought process linear and goal directed. Speech sometimes nonsensical, dysarthric at times too. Mood and affect congruent, irritable, constricted. Denies SI, HI. Some helplessness and hopelessness. Memory not formally tested. Insight impaired. Judgment impaired. Fund of knowledge well below average. PROGNOSIS: For this patient is poor given her age of 88, advanced dementia, fragile physical state. <ELECTRONICALLY SIGNED> By: Eric Pierson DO 05/09/19901 00 38 Eric Pierson DO /nt
== END 2019-05-08 11:30 | DRG 56 ==
LOC: ER 11:25 → EROBS 13:58 → SBH 13:58
PROVIDERS: Emergency Medicine; ADMIT Psychiatry & Neurology Psychiatry
DX: G30.9 Alzheimer's disease, unspecified (principal); E43 Unspecified severe protein-calorie malnutrition; F02.81 Dementia in other diseases classified elsewhere, unspecified severity, with behavioral disturbance; F01.51 Vascular dementia, unspecified severity, with behavioral disturbance; Z68.1 Body mass index [BMI] 19.9 or less, adult; R44.3 Hallucinations, unspecified; M19.90 Unspecified osteoarthritis, unspecified site; Z66 Do not resuscitate; F32.9 Major depressive disorder, single episode, unspecified; R31.9 Hematuria, unspecified; E87.6 Hypokalemia; R13.10 Dysphagia, unspecified; K21.9 Gastro-esophageal reflux disease without esophagitis; F41.9 Anxiety disorder, unspecified; E78.5 Hyperlipidemia, unspecified; F60.0 Paranoid personality disorder; E83.42 Hypomagnesemia; Z79.899 Other long term (current) drug therapy; Z91.19 Patient's noncompliance with other medical treatment and regimen; Z80.3 Family history of malignant neoplasm of breast; Z83.3 Family history of diabetes mellitus
CPT/HCPCS: 10880